=== PATIENT | female | born 1935 ===

== ENCOUNTER 2017-10-29 14:32 | Outpatient (CLI) | payer OTHER | END 2017-10-29 14:40 | disposition home or self-care (01) | LOC: TOM 14:32 | DX: J98.4 Other disorders of lung (principal) ==

== ENCOUNTER 2017-11-03 07:23 | Outpatient (CLI) | payer OTHER | END 2017-11-03 07:33 | disposition home or self-care (01) | LOC: LAB 07:23 | DX: J15.8 Pneumonia due to other specified bacteria (principal) ==

== ENCOUNTER → 2017-11-04 06:48 | Outpatient (CLI) | payer OTHER | END | disposition home or self-care (01) | LOC: LAB 06:48 | DX: A31.0 Pulmonary mycobacterial infection (principal) ==

== ENCOUNTER → 2017-11-05 | Outpatient (CLI) | payer OTHER | END | disposition home or self-care (01) | LOC: LAB 06:47 | DX: A31.0 Pulmonary mycobacterial infection (principal) ==